=== PATIENT | male | born 1985 ===

== ENCOUNTER 2017-02-24 11:03 | Inpatient (IN) | payer MEDICAID, OTHER ==
[~2017-02-24] VITALS: Ht 167.6 cm; Wt 68.2 kg
[~2017-02-24 11:03] MED LIST: RISP.5 PO
[2017-02-24 11:43] LABS: BASOPHILS % (AUTO) 0.3 % (0.0-2.0); EOSINOPHILS % (AUTO) 0.2 % (1.0-6.0); HEMATOCRIT 42.7 % (41-53); HEMOGLOBIN 14.9 g/dL (13.5-17.5); LYMPHOCYTES # (AUTO) 1.5 K/uL (1.0-4.8); LYMPHOCYTES % (AUTO) 23.9 % (22.0-44.0); MEAN CORPUSCULAR HEMOGLOBIN 30.9 pg (26.0-34.0); MEAN CORPUSCULAR HGB CONC 34.8 G/dL (31.0-37.0); MEAN CORPUSCULAR VOLUME 89 fL (80-100); MONOCYTES # (AUTO) 0.5 K/uL (0.1-1.0); MONOCYTES % (AUTO) 7.2 % (2.0-9.0); NEUTROPHILS # (AUTO) 4.4 K/uL (1.8-7.7); NEUTROPHILS % (AUTO) 68.4 % (40.0-70.0); PLATELET COUNT (AUTO) 215 K/uL (150-450); RED BLOOD CELL COUNT(AUTO) 4.82 MIL/uL (4.50-5.90); RED CELL DISTRIBUTION WIDTH 12.7 % (11.5-14.5); WHITE BLOOD COUNT (AUTO) 6.4 K/uL (4.5-11.0)
[2017-02-24 11:48] LABS: ANION GAP 5 mmol/L (8-16); CALCIUM, TOTAL 9.6 mg/dL (8.8-10.5); CARBON DIOXIDE 32 mmol/L (22-29); CHLORIDE 102 mmol/L (98-107); CREATININE 0.83 mg/dL (0.60-1.30); GLOMERULAR FILTR. RATE CALC > 60 mL/min (>60); POTASSIUM 4.4 mmol/L (3.5-5.1); SODIUM SERUM 139 mmol/L (136-145); UREA NITROGEN, BLOOD 6 mg/dL (7-18)
[2017-02-24 11:55] LABS: ALANINE AMINOTRANSFERASE 27 U/L (12-78); ALBUMIN 4.2 g/dL (3.4-5.0); ASPARTATE AMINOTRANSFERASE 24 U/L (15-37); BILIRUBIN,TOTAL 0.8 mg/dL (0.1-1.0); TOTAL PROTEIN, SERUM 8.3 g/dL (6.4-8.2)
[2017-02-24] MEDS ORDERED: ZOLPIDEM TARTRATE 10 MG TABLET PO PRN (13:00)
[2017-02-24] MEDS ORDERED: HALOPERIDOL 5 MG TABLET PO PRN (13:00)
[2017-02-24] MEDS ORDERED: LORazepam 2 MG TABLET PO PRN (13:00)
[2017-02-24 13:19] LABS: CHOL/HDL RATIO 4.7 (4.2-7.3)
[2017-02-24 14:49] VITALS: BP 136/88
[2017-02-24 16:30] VITALS: BP 139/89
[2017-02-25 08:23] VITALS: BP 123/68
[2017-02-25] MEDS: RisperiDONE 1 MG TABLET PO SCH ×2 (09:00→20:26)
[2017-02-25] MEDS ORDERED: ACETAMINOPHEN 325 MG TABLET PO PRN (15:00)
[2017-02-25] MEDS ORDERED: IBUPROFEN 400 MG TABLET PO PRN (15:00)
[2017-02-26 07:11] LABS: HEMOGLOBIN A1C 5.2 % (4.5-6.2)
[2017-02-26 07:24] LABS: THYROID STIMULATING HORMONE 0.79 uIU/mL (0.36-3.74)
[2017-02-26 08:30] VITALS: BP 124/92
[2017-02-26] MEDS: RisperiDONE 1 MG TABLET PO SCH ×2 (09:00→21:00)
[2017-02-26] MEDS: OMEGA-3/DHA/EPA/FISH OIL 1,000 MG CAPSULE PO SCH (09:00)
[2017-02-26 16:47] VITALS: BP 116/68
[2017-02-27] MEDS: RisperiDONE 1 MG TABLET PO SCH (09:00)
[2017-02-27] MEDS: OMEGA-3/DHA/EPA/FISH OIL 1,000 MG CAPSULE PO SCH (09:00)
[2017-02-27] MEDS ORDERED: RISP1 PO (11:49)
[2017-02-27] MEDS ORDERED: FISH1CAP27 PO (11:50)
== END 2017-02-27 15:45 | disposition home or self-care (01) | DRG 751 ==
LOC: EMS 11:05 → EEVIPCON 11:05 → 3EI 13:53
DX: F23 Brief psychotic disorder (principal); F25.9 Schizoaffective disorder, unspecified; F29 Unspecified psychosis not due to a substance or known physiological condition; F41.9 Anxiety disorder, unspecified; R00.0 Tachycardia, unspecified
CPT/HCPCS: 83036; 84443; 99285; G0480